=== PATIENT | female | born 1995 | race Caucasian/White ===

== ENCOUNTER → 2018-10-01 | Outpatient (CLI) | payer OTHER ==
--- NOTE | 2018-10-02 15:07 | PATH ---
[facility] [address] [place] [address] PATHOLOGY RPT PROCEDURE Name: AARON ALMONTEAMEYA Craft Room #: REG ALFRED Gregory.#: [id number] Admission: 10/01/18 Date of : 89 Discharge: Report #: [id number] Path Case #: [id number] [facility] Accession Number: [id number] . 01 Material submitted: . stomach - BX GASTRITIS R/O H PYLORI . 01 Clinical history: . GERD Gastritis, dysphagia, small hiatus hernia Rule H. pylori . 02 Diagnosis: Gastric mucosa, gastritis, rule out H. pylori, endoscopic biopsy: - Mild reactive gastropathy. - Negative for intestinal metaplasia or atrophy. - Negative for Helicobacter pylori (properly controlled immunohistochemical stain performed). (IUV:pit; 10/02/2018) QTP/10/02/2018 . 02 Electronically signed: . Lanny Phillips MD, Pathologist NPI- [id number] . 01 Gross description: . The specimen is received in formalin, labeled "Gemma Almonte, BX gastritis" and consists of multiple fragments of pink-hughes tissue measuring 1.1 x 0.6 x 0.3 cm in aggregate which are entirely submitted in A1. (SDY; 10/01/2018) SYU/SYU . 02 Pathologist provided ICD-10: K31.9 . 02 CPT . 950960, M72622 Specimen Comment: A courtesy copy of this report has been sent to Specimen Comment: [phone]. Specimen Comment: Report sent to Performed at: [address] [facility], [place], [place] [id number] MD Regino Knox MD Phone: [phone] Performed at: [address] [facility] [id number] [address] [address] PATHOLOGY RPT PROCEDURE Name: GEMMA ALMONTE Room #: REG CLI [facility].#: [id number] Admission: 10/01/18 Date of : [birth year] Discharge: Report #: [id number] Path Case #: [id number] MD Lanny Phillips MD Phone: [phone]
--- NOTE | 2018-10-03 10:48 | P ---
[facility] [place] [place] [address] [place] [address] PROCEDURE REPORT Name: GAGEMARILUZ R Room #: REG [facility]#: [id number] Admission: 10/01/18 Attend Phys: Arturo Nair MD Discharge: Date of : [birth year] Report #: [id number] THIS REPORT FOR: //name// CC: ASIM physician/PCP Arturo Nair DATE OF SERVICE: 10/01/2018 OUTPATIENT UPPER ENDOSCOPY BRIEF HISTORY: The patient is a 23-year-old woman with recurrent nausea and vomiting as well as dysphagia and abdominal pain. She was evaluated in [place], [place] in the past. She describes a previous endoscopy, at which time she was told she had esophageal ulcers. She also had a gastric emptying study and was told she has mild gastroparesis. She is not able to tolerate metoclopramide. She now reports she is having increasing vomiting and vomiting essentially on a daily basis. She will vomit up food, which she has eaten. She has not vomited up any blood. She has not vomited up food that she had eaten the night before. PREOPERATIVE DIAGNOSES: Nausea, vomiting, dysphagia and abdominal pain. POSTOPERATIVE DIAGNOSES: 1. Diffuse gastritis. 2. Small, less than 2-cm sliding-type hiatus hernia, intermittently seen. 3. Dysphagia. MEDICATIONS: Deep sedation with propofol per anesthesia. SPECIMEN: Biopsies of gastritis. ESTIMATED BLOOD LOSS: 3 mL. PROCEDURE: EGD with biopsy. FINDINGS: Prior to propofol sedation, procedure of upper endoscopy was discussed with the patient as well as potential risks and its complications. She indicates she understands and desires to proceed. DESCRIPTION OF PROCEDURE: With the patient in left lateral decubitus position, the Olympus video endoscope was inserted in the cervical esophagus under direct vision without difficulty. Examination of this organ through its entire length revealed normal esophageal mucosa down the squamocolumnar junction. The squamocolumnar junction was inspected and noted to be unremarkable. There was no evidence of esophagitis or ulcers. There is no evidence of Ward mucosa. No strictures or masses were seen. Intermittently, a less than 2-cm sliding type hiatus hernia was seen. Scope was advanced in the stomach, which was [facility] [place] [place] [address] [place] [address] PROCEDURE REPORT Name: GAGEMARILUZ R Room #: REG [facility] Colt.#: [id number] Admission: 10/01/18 Attend Phys: Arturo Nair MD Discharge: Date of : [birth year] Report #: [id number] examined on end view as well as retroflexed views. There was moderate antral erythema. The mucosa was intact. No ulcers or erosions were seen. There were no retained solids or liquids in the stomach. Upon retroflexion, no abnormalities were identified. The pylorus, duodenal bulb and postbulbar duodenal sweep down to the third portion was noted to be unremarkable. The duodenal papilla was identified, and clear yellow bile was streaming from it. At that point, the scope was slowly withdrawn and careful circumferential views confirmed the above findings. The patient tolerated the procedure well. Following the procedure, she was dilated with passage of a 50-Persian Sotelo dilator. There was no resistance. CONDITION OF THE PATIENT UPON DISCHARGE: Following procedure, the patient drowsy, aroused, conversant and will be discharged home when fully ambulatory. INSTRUCTIONS TO THE PATIENT AND FAMILY AT THE TIME OF DISCHARGE: The patient with recurrent nausea, vomiting, abdominal pain and dysphagia. No evidence of ulcer disease or esophagitis today. We will change her PPI from omeprazole to pantoprazole 40 mg twice daily. Also, have her use Zofran as needed for nausea. We need to try to obtain records from her previous evaluation. Also, she can use Zofran every 6 hours as needed for nausea. She is to return to see me in followup in the office. <ELECTRONICALLY SIGNED> By: Arturo Nair MD 10/03/18 [id number] Arturo Nair MD /nt
== END | disposition home or self-care (01) ==
LOC: GI 08:19
DX: K31.9 Disease of stomach and duodenum, unspecified (principal); R13.19 Other dysphagia; K44.9 Diaphragmatic hernia without obstruction or gangrene
CPT/HCPCS: 62110; 62900